=== PATIENT | female | born 1955 | race Caucasian/White ===

== ENCOUNTER → 2017-04-18 | Outpatient (CLI) | payer OTHER ==
--- NOTE | 2017-04-18 15:13 | XR ---
EXAMINATION TYPE: XR shoulder complete RT DATE OF EXAM: 04/18/2017 COMPARISON: NONE HISTORY: 61 year-old female right shoulder pain, lifting injury 6 days ago TECHNIQUE: 3 views FINDINGS: Moderate degenerative joint space narrowing with marginal spurring at the acromioclavicular joint. Cooley bacromial space is preserved without tendinous or bursal calcifications. No acute fracture, subluxati on, or dislocation seen. IMPRESSION: Moderate AC joint osteoarthrosis. No acute osseous abnormality seen.
--- NOTE | 2017-04-18 15:37 | XR ---
Cervical spine HISTORY: Cervical strain, neck pain 5 views of the cervical spine Soft tissue calcifications likely are in the distribution of the carotid bulbs. Lateral extension of endplates causes foraminal encroachment at C5-6 and C6-7 bilaterally. Loss of normal cervical lordosi s may be due to muscle spasm. Minimal anterolisthesis grade 1 C2-3, retrolisthesis grade 1 C3-4 and C 5-6. Loss of disc height present especially at C5-6 and C6-7. IMPRESSION: Degenerative disc disease and facet arthropathy. Additional findings above.
== END ==
LOC: RADXRMAIN 14:42
PROVIDERS: ATTEND Emergency Medicine
DX: S13.4XXA Sprain of ligaments of cervical spine, initial encounter (principal); M50.30 Other cervical disc degeneration, unspecified cervical region; M46.82 Other specified inflammatory spondylopathies, cervical region; M19.011 Primary osteoarthritis, right shoulder
CPT/HCPCS: 72050

== ENCOUNTER → 2017-04-24 | Outpatient (CLI) | payer OTHER ==
--- NOTE | 2017-04-24 19:08 | MR ---
EXAMINATION TYPE: MR cervical spine wo con DATE OF EXAM: 04/24/2017 COMPARISON: NONE HISTORY: Neck and shoulder pain TECHNIQUE: Multiplanar, multisequence images of the cervical spine were acquired. C2-C3: No disc herniation, canal stenosis or foraminal encroachment. C3-C4: Focal central and right paracentral disc herniation with mild anterior compression final cord. Degenerative disc disease noted. Facet arthropathy and uncovertebral joint hypertrophy with mild to moderate bilateral foraminal encroachment. C4-C5: Moderate degenerative disc disease. Focal central disc bulging. Facet arthropathy and uncovert ebral joint hypertrophy with mild bilateral foraminal encroachment but no canal stenosis. C5-C6: Severe degenerative disc disease with posterior spondylosis with diffuse disc bulging capped b y spur. Facet arthropathy and uncovertebral joint hypertrophy result in significant bilateral foramin al encroachment and moderate canal stenosis. C6-C7: Severe degenerative disc disease with posterior disc broad-based bulging capped by spur. Uncov ertebral joint hypertrophy and facet arthropathy are noted with moderate bilateral foraminal encroach ment and mild to moderate canal stenosis. C7-T1: No evidence for degenerative disc disease. No disc bulge/herniation or protrusion. No Canal stenosis. Foramina are patent bilaterally. Cervical segments are intact. There is normal alignment. Cervical spinal cord is of normal signal. Craniovertebral junction relationships are within normal limits. IMPRESSION: 1. There is a focal central and right paracentral disc herniation C3-C4 with anterior spinal cord com pression. No definite evidence of compressive myelitis. 2. Multilevel severe degenerative disc disease with disc bulging capped by spur at multiple levels re sulting in multilevel canal stenosis and significant foraminal encroachment. Most marked findings see n at C5-6 and C6-C7.
== END | disposition home or self-care (01) ==
LOC: RADMRIMAIN 17:51
PROVIDERS: ATTEND Emergency Medicine
DX: M48.02 Spinal stenosis, cervical region (principal); M50.21 Other cervical disc displacement, high cervical region; M50.33 Other cervical disc degeneration, cervicothoracic region; G95.20 Unspecified cord compression; S43.401A Unspecified sprain of right shoulder joint, initial encounter; R20.9 Unspecified disturbances of skin sensation
CPT/HCPCS: 72141

== ENCOUNTER → 2020-02-17 | Outpatient (CLI) | payer MEDICARE ==
--- NOTE | 2020-02-18 11:07 | MM ---
Reason for exam: screening (asymptomatic). Last mammogram was performed 3 years and 7 months ago. History: Patient is postmenopausal. Benign US left CoreBiopsy of the left breast, July 01, 2006. Physical Findings: A clinical breast exam by your physician is recommended on an annual basis and results should be correlated with mammographic findings. MG Screening Mammo w CAD Bilateral CC and MLO view(s) were taken. Prior study comparison: July 12, 2016, bilateral MG screening mammo w CAD. January 19, 2015, bilateral MG screening mammo w CAD. The breast tissue is heterogeneously dense. This may lower the sensitivity of mammography. There are benign appearing round calcifications bilaterally. There is chronic nodularity in the right breast. There is no discrete abnormality. Prominent benign left axillary lymph nodes redemonstrated. ASSESSMENT: Benign, BI-RAD 2 RECOMMENDATION: Routine screening mammogram of both breasts in 1 year.
== END | disposition home or self-care (01) ==
LOC: RADMAMWWP 14:59
PROVIDERS: ATTEND Family Medicine
DX: Z12.31 Encounter for screening mammogram for malignant neoplasm of breast (principal)
CPT/HCPCS: 77067

== ENCOUNTER → 2021-08-29 | Outpatient (CLI) | payer MEDICARE ==
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
== END | disposition home or self-care (01) ==
LOC: RADBDWWP 09:04
PROVIDERS: ATTEND Family Medicine
DX: M85.80 Other specified disorders of bone density and structure, unspecified site (principal); Z78.0 Asymptomatic menopausal state
CPT/HCPCS: 77080

== ENCOUNTER → 2021-12-21 | Outpatient (CLI) | payer MEDICARE ==
--- NOTE | 2021-12-25 11:45 | MM ---
Reason for exam: screening (asymptomatic). Last mammogram was performed 1 year and 10 months ago. History: Patient is postmenopausal. Benign US left CoreBiopsy of the left breast, July 01, 2006. Physical Findings: A clinical breast exam by your physician is recommended on an annual basis and results should be correlated with mammographic findings. MG Screening Mammo w CAD Bilateral CC and MLO view(s) were taken. Prior study comparison: February 17, 2020, bilateral MG screening mammo w CAD. July 12, 2016, bilateral MG screening mammo w CAD. There are scattered fibroglandular densities. There is chronic nodularity bilaterally. No significant changes when compared with prior studies. ASSESSMENT: Benign, BI-RAD 2 RECOMMENDATION: Routine screening mammogram of both breasts in 1 year.
== END | disposition home or self-care (01) ==
LOC: RADMAMWWP 15:52
PROVIDERS: ATTEND Family Medicine
DX: Z12.31 Encounter for screening mammogram for malignant neoplasm of breast (principal); Z78.0 Asymptomatic menopausal state
CPT/HCPCS: 77067

== ENCOUNTER → 2023-01-09 | Outpatient (CLI) | payer MEDICARE ==
--- NOTE | 2023-01-10 09:59 | MM ---
Reason for Exam: Screening (asymptomatic). Last mammogram was performed 1 year(s) and 1 month(s) ago. Patient History: Menarche at age 13. First Full-Term at age 19. Postmenopausal. 07/01/2006, Benign Core Biopsy on the left side. Risk Values: Marie 5 year model risk: 1.4%. NCI Lifetime model risk: 5.2%. Prior Study Comparison: 07/12/2016 Bilateral Screening Mammogram, [facility]. 02/17/2020 Bilateral Screening Mammogram, [facility]. 12/21/2021 Bilateral Screening Mammogram, [facility]. Tissue Density: There are scattered fibroglandular densities. Findings: Analyzed By CAD. There are scattered small benign-appearing round calcifications throughout the bilateral breasts. There are stable small circumscribed round masses scattered throughout the bilateral breasts. There is no suspicious group of microcalcifications or new suspicious mass in either breast. Overall Assessment: Benign, BI-RAD 2 Management: Screening Mammogram of both breasts in 1 year. . Patient should continue monthly self-breast exams. A clinical breast exam by your physician is recommended on an annual basis. This exam should not preclude additional follow-up of suspicious palpable abnormalities. Note on Marie scores and lifetime risk: 1. A Marie score greater than 3% is considered moderate risk. If this is the case, consider specialist referral to assess eligibility for a risk reducing agent. 2. If overall lifetime risk for the development of breast cancer is 20% or higher, the patient may qualify for future screening with alternating mammogram and breast MRI. Electronically signed and approved by: Slim Joy M.D.
== END | disposition home or self-care (01) ==
LOC: RADMAMWWP 10:15
PROVIDERS: ATTEND Family Medicine
DX: Z12.31 Encounter for screening mammogram for malignant neoplasm of breast (principal); Z78.0 Asymptomatic menopausal state
CPT/HCPCS: 77063; 77067

== ENCOUNTER 2023-03-09 19:00 | Emergency (ER) | payer MEDICARE ==
[2023-03-09 19:06] VITALS: PULSE 118
[2023-03-09] MEDS ORDERED: MORPHINE SULFATE 4 MG/ML SYRINGE IM STA (19:37)
[2023-03-09] MEDS ORDERED: LIDOCAINE 1% INJ 10MG/ML (30 ML VIAL-PF) SQ ONE (19:37)
[2023-03-09] MEDS ORDERED: DIPH,PERTUS(ACELL)TETVAC-LF 0.5 ML VIAL IM ONE (19:37)
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
[2023-03-09] MEDS ORDERED: ACET/COD 300 MG/30 MG STARTER PACK 6 TAB BTL PO STA (20:53)
[2023-03-09 21:46] VITALS: BP 143/81; RESP 18; TEMP 97.8
== END 2023-03-09 21:45 | disposition home or self-care (01) ==
LOC: EC 19:00
DX: S01.01XA Laceration without foreign body of scalp, initial encounter (principal); S51.811A Laceration without foreign body of right forearm, initial encounter; E11.9 Type 2 diabetes mellitus without complications; I10 Essential (primary) hypertension; E78.5 Hyperlipidemia, unspecified; F17.200 Nicotine dependence, unspecified, uncomplicated; Z23 Encounter for immunization; Z79.84 Long term (current) use of oral hypoglycemic drugs; Z79.82 Long term (current) use of aspirin; Z79.899 Other long term (current) drug therapy; X99.8XXA Assault by other sharp object, initial encounter
CPT/HCPCS: 70450; 90715; 99283; 96372; 90471; 12002; J2270; J2001

== ENCOUNTER 2024-04-14 12:35 | Day surgery (SDC) | payer MEDICARE ==
[~2024-04-14 12:35] MED LIST: LACTATED RINGERS 1,000 ML BAG ONE; LIDOCAINE 1% INJ 10MG/ML (20 ML MDV) ONE; PROPOFOL 10 MG/ML 20 ML VIAL IV ONE
--- NOTE | 2024-04-24 15:53 | PCN ---
PROCEDURE NOTE PREOPERATIVE DIAGNOSIS: Abnormal stool study. POSTOPERATIVE DIAGNOSIS: Diverticulosis, slightly suboptimal prep. PROCEDURE PERFORMED: Colonoscopy. ANESTHESIA: Sedation. SURGEON: Stephanie. COMPLICATIONS: None. OPERATIVE PROCEDURE: The patient was brought and placed on the OR table in the left decubitus position. The patient was sedated per Anesthesia at that time. The Olympus colonoscope was inserted into the anus and passed under direct visualization to the base of the cecum. From that point, we slowly withdrew the scope, inspected all organs carefully. There were no neoplastic, inflammatory, or polypoid lesions seen throughout the cecum, ascending, transverse, descending, sigmoid or rectum. The patient's prep was slightly suboptimal, especially on the right side of the colon where there was some retained liquid and solid stool. A portion of the mucosa was not able to be well visualized. The patient had moderate left-sided diverticulosis. Digital rectal examination was normal. PLAN: 1. Resume diet. 2. Followup colonoscopy in 5 years given history of colon polyps. MMODL / IJN: [id number] /
== END 2024-04-14 13:40 ==
LOC: ORWHC2ENDO 12:35
PROVIDERS: ATTEND Surgery
DX: K57.30 Diverticulosis of large intestine without perforation or abscess without bleeding
CPT/HCPCS: 45378